=== PATIENT | male | born 1950 | race Two or more races ===

== ENCOUNTER 2017-11-09 10:33 | Inpatient (IN) | payer OTHER ==
[~2017-11-09] VITALS: Ht 160 cm; Wt 80.7 kg
[2017-11-09] MEDS ORDERED: GABAPENTIN (11:05)
[2017-11-09] MEDS ORDERED: NORFLEX (11:05)
[2017-11-09] MEDS ORDERED: COZAAR25 MG PO (11:06)
[2017-11-09] MEDS ORDERED: ADULT ASPIRIN81 MG PO (11:06)
[2017-11-09] MEDS ORDERED: ATOVASTATIN (11:07)
[2017-11-17] MEDS ORDERED: DOCUSATE SODIU100 MG PO (10:25)
[2017-11-17] MEDS ORDERED: GABAPENTIN800 MG PO (10:25)
[2017-11-17] MEDS ORDERED: AMOX-CLAV 875-1 EACH PO (10:26)
[2017-11-17] MEDS ORDERED: PERCOCET 5-3251 EACH PO (10:27)
[2017-11-17] MEDS ORDERED: CLONAZEPAM1 MG PO (10:27)
== END 2017-11-17 13:24 | disposition home or self-care (01) | DRG 455 ==
LOC: O/R 11-16 05:05 → RECOVERY 11-16 10:00 → PED 11-16 19:05
PROVIDERS: Orthopaedic Surgery Orthopaedic Surgery of the Spine
PROC: 0SG0071 Fusion of Lumbar Vertebral Joint with Autologous Tissue Substitute, Posterior Approach, Posterior Column, Open Approach (ICD-10-PCS; 2017-11-16)
PROC: 0ST20ZZ Resection of Lumbar Vertebral Disc, Open Approach (ICD-10-PCS; 2017-11-16)
PROC: 0SG00AJ Fusion of Lumbar Vertebral Joint with Interbody Fusion Device, Posterior Approach, Anterior Column, Open Approach (ICD-10-PCS; 2017-11-16)
PROC: 07DS3ZZ Extraction of Vertebral Bone Marrow, Percutaneous Approach (ICD-10-PCS; 2017-11-16)
PROC: 0SG00A0 Fusion of Lumbar Vertebral Joint with Interbody Fusion Device, Anterior Approach, Anterior Column, Open Approach (ICD-10-PCS; principal; 2017-11-16 10:00)
DX: M47.26 Other spondylosis with radiculopathy, lumbar region (principal); M48.061 Spinal stenosis, lumbar region without neurogenic claudication; M51.16 Intervertebral disc disorders with radiculopathy, lumbar region; I10 Essential (primary) hypertension